=== PATIENT | female | born 1950 | race Caucasian/White ===

== ENCOUNTER 2018-04-01 17:33 | Emergency (ER) | payer OTHER, SELFPAY ==
--- NOTE | 2018-04-01 17:42 | DI.RAD.S_ITS ---
PROCEDURE: XR CHEST 1V INDICATIONS: fever, cancer TECHNIQUE: One view of the chest was acquired. COMPARISON: None. FINDINGS: Surgical changes and devices: Right chest wall Port-A-Cath. Lungs and pleura: No pleural effusions or pneumothorax. Lungs are clear. Mediastinum: Mediastinal contours appear normal. Heart size is normal. Bones and chest wall: No suspicious bony lesions. Overlying soft tissues appear unremarkable. IMPRESSION: No acute cardiopulmonary disease process. Dictated by: Mili Ricci MD, PhD on 04/01/2018 at 19:19 Approved by: Mili Ricci MD, PhD on 04/01/2018 at 19:19
[2018-04-01 17:46] VITALS: BP 125/72; PULSE 123; RESP 20; TEMP 39.4; O2SAT 94
[2018-04-01 18:00] VITALS: BP 131/69
[2018-04-01 18:09] LABS: Add Manual Diff / Slide Review NO; Basophils Absolute Auto 0 /uL (0-100); Basophils Percent Auto 0.2 % (0-2); Eosinophils Absolute Auto 0 /uL (0-450); Eosinophils Percent Auto 0.4 % (2-4); Hematocrit 36.2 % (36-46); Hemoglobin 11.9 g/dL (12.0-16.0); Lymphocytes Absolute Auto 400 /uL (1100-4500); Lymphocytes Percent Auto 4.9 % (25-40); Mean Corpuscular HGB Conc 32.9 % (30-36); Mean Corpuscular Hemoglobin 27.9 PG (26-34); Mean Corpuscular Volume 84.7 fL (80-100); Monocytes Absolute Auto 1100 /uL (0-900); Monocytes Percent Auto 14.8 % (3-14); Neutrophils Absolute Auto 5800 /uL (1500-7000); Neutrophils Percent Auto 79.7 % (50-75); Platelet Count 159 X10^3/uL (150-400); Red Blood Cell Count 4.27 X10^6/uL (4.0-5.2); Red Cell Distribution Width 16.2 % (11.6-14.8); White Blood Cell Count 7.3 X10^3/uL (4.5-11.0)
[2018-04-01 18:18] LABS: Lactate (Lactic Acid) 0.8 mmol/L (0.7-2.1)
[2018-04-01 18:19] LABS: Alanine Aminotransferase 249 IU/L (9-52); Albumin 3.9 g/dL (3.5-5.0); Albumin Globulin Ratio 1.3 (1.0-2.8); Alkaline Phosphatase 852 U/L (38-126); Aspartate Aminotransferase 450 IU/L (14-36); Bilirubin Total 2.2 mg/dL (0.2-1.3); Blood Urea Nitrogen 9 mg/dL (7-17); Calcium 9.1 mg/dL (8.4-10.2); Carbon Dioxide 27 mmol/L (22-32); Chloride 97 mmol/L (98-107); Estimated Glomerular Filt Rate > 60.0 mL/min (>60); Glucose 130 mg/dL (80-110); HEMOLYSIS < 15 (0-50); Sodium 134 mmol/L (137-145); Total Protein 6.9 g/dL (6.3-8.2)
--- NOTE | 2018-04-01 18:38 | ED.FEVER ---
HPI - Fever General Chief Complaint: Fever Stated Complaint: Fever Time Seen by Provider: 04/01/18 17:42 Source: patient, family and EMS Mode of arrival: EMS Limitations: altered mental status History of Present Illness HPI Narrative: 67-year-old female, nonsmoker presents by EMS with her for evaluation of mental status change and supposed sepsis. She carries a diagnosis of pancreatic cancer and completed proton therapy in [place] 8 weeks ago. Her last round of chemotherapy was about 1 week ago. She was in her normal state of health this morning when her left and upon return she was obviously quite ill fever and shaking chills. She has had nausea and 1 episode of vomiting. She took Phenergan suppository prior to her arrival. They had already arranged for direct admission to [facility], but she was too weak to make it to the car. EMS was dispatched and brought her here, the closest facility. She complains of nausea and has little complaint of pain but admittedly feels terrible MD complaint: fever and malaise Onset (ago): hour(s) Maximum Temperature: 103 F Temperature Source: oral Context: on chemotherapy Associated symptoms: chills, rigors, nausea and vomiting Relieving factors: nothing Exacerbating factors: nothing Treatments prior to arrival fever: none Related Data Allergies Allergy/AdvReac Type Severity Reaction Status Date / Time meperidine [From Demerol] Allergy Verified 04/01/18 20:23 Review of Systems Constitutional Denies chills, Denies fever(s), Denies lethargy and Denies weakness Eyes Denies change in vision, Denies eye discharge, Denies irritation and Denies loss of vision ENT Ears, Nose, Mouth, and Throat: Denies change in voice, Denies neck pain and Denies sore throat Cardiovascular Denies chest pain, Denies irregular heart rhythm, Denies lightheadedness, Denies palpitations, Denies dyspnea, Denies dyspnea on exertion and Denies orthopnea Respiratory Denies cough, Denies dyspnea, Denies dyspnea on exertion and Denies wheezing Gastrointestinal Gastrointestinal: Denies abdominal pain, Denies change in bowel habits, Denies diarrhea, Denies nausea and Denies vomiting Genitourinary Denies hematuria, Denies flank pain, Denies urinary incontinence and Denies urinary urgency Musculoskeletal Denies neck pain Integumentary/Breasts Denies pruritus, Denies erythema, Denies rash and Denies wounds Neurologic Denies confusion, Denies loss of vision and Denies weakness Psychiatric Denies anxiety, Denies confusion, Denies depression, Denies homicidal ideation and Denies suicidal ideation Endocrine Denies palpitations Hematologic/Lymphatic Denies easy bruising Allergic/Immunologic Denies wheezing [facility] Social History Smoking Status: Never smoker Exam Narrative Exam Narrative: GENERAL: 67-year-old female, chronically ill obviously in distress and uncomfortable. HEAD: Atraumatic. Normocephalic. No temporal or scalp tenderness. EYES: Pupils equal round and reactive. Extraocular motions intact. No scleral icterus. No injection or drainage. ENT: Nose without bleeding, purulent drainage or septal hematoma. Throat without erythema, tonsillar hypertrophy or exudate. Uvula midline. Airway patent. NECK: Trachea midline. No JVD or lymphadenopathy. Supple, nontender, no meningeal signs. CARDIOVASCULAR: Regular rate and rhythm without murmurs, gallops, or rubs. RESPIRATORY: Clear to auscultation. Breath sounds equal bilaterally. No wheezes, rales, or rhonchi. GASTROINTESTINAL: Abdomen soft, with genearlized tenderness, drain in place in RUQ, no obvious problems with drain. EXTREMITIES: No clubbing, cyanosis, or edema. No joint tenderness, effusion, or edema noted. BACK: Nontender without deformity or crepitance. No flank tenderness. NEURO: AOx3. SKIN: No rash or erythema. Initial Vital Signs Initial Vital Signs: Vital Signs Temperature 103 F H 04/01/18 17:46 Pulse Rate 123 H 04/01/18 17:46 Respiratory Rate 20 04/01/18 17:46 Blood Pressure 125/72 04/01/18 17:46 Pulse Oximetry 94 04/01/18 17:46 Scores GCS [place] coma scale eye opening: To sound [place] coma scale verbal response: Orientated [place] coma scale motor response: Obey commands Pauline coma scale total score: 14 Course Orders Ordered: ED Orders 04/01/18 18:45 Blood Culture Stat Urinalysis and Microscopic Stat Discontinued Medications Acetaminophen (Tylenol) 975 mg PO NOW ONE Stop: 04/01/18 17:45 Last Admin: 04/01/18 18:57 Dose: Not Given Sodium Chloride (Normal Saline 0.9%) 1,000 mls @ 200 mls/hr IV CONT YANIV Last Admin: 04/01/18 18:59 Dose: 200 mls/hr Ketorolac Tromethamine (Toradol) 15 mg IV NOW ONE Stop: 04/01/18 18:31 Last Admin: 04/01/18 18:59 Dose: 15 mg Lorazepam (Ativan) 0.5 mg IV NOW ONE Stop: 04/01/18 19:19 Last Admin: 04/01/18 19:26 Dose: 0.5 mg Morphine Sulfate (Morphine Sulfate) 4 mg IV NOW ONE Stop: 04/01/18 18:31 Last Admin: 04/01/18 19:00 Dose: 4 mg Ondansetron HCl (Zofran) 4 mg IV NOW ONE Stop: 04/01/18 17:46 Last Admin: 04/01/18 18:58 Dose: 4 mg Ondansetron HCl (Zofran) 4 mg IV NOW ONE Stop: 04/01/18 18:31 Last Admin: 04/01/18 18:59 Dose: Not Given Reevaluation(s) Reevaluation #1: patient shows tremendous improvement after above stated therapies and is now much more awake and interactive Consultations Consultation #1: call to Dr. Villanueva (hospitalist at [facility]) whom is happy to accept in transfer. No ABX now, as there is no obvious source. Vital Signs - 8 hr 04/01/18 20:40 Temperature 97.9 F Pulse Rate 102 H Blood Pressure [Right Arm] 110/53 L MDM - Fever Medical Records Attestation: I reviewed the patient's medical records. Lab Data Attestation: I reviewed the patient's lab results. Result diagrams: 04/01/18 17:55 04/01/18 17:55 Lab Results 04/01/18 04/01/18 04/01/18 Range/Units 17:55 17:55 17:55 WBC 7.3 (4.5-11.0) X10^3/uL RBC 4.27 (4.0-5.2) X10^6/uL Hgb 11.9 L (12.0-16.0) g/dL Hct 36.2 (36-46) % MCV 84.7 (80-100) fL MCH 27.9 (26-34) PG MCHC 32.9 (30-36) % RDW 16.2 H (11.6-14.8) % Plt Count 159 (150-400) X10^3/uL Neut % (Auto) 79.7 H (50-75) % Lymph % (Auto) 4.9 L (25-40) % [place] % (Auto) 14.8 H (3-14) % Eos % (Auto) 0.4 L (2-4) % Baso % (Auto) 0.2 (0-2) % Neut # (Auto) 5800 (8757-0513) /uL Lymph # (Auto) 400 L (1724-1461) /uL [place] # (Auto) 1100 H (0-900) /uL Eos # (Auto) 0 (0-450) /uL Baso # (Auto) 0 (0-100) /uL Sodium 134 L (137-145) mmol/L Potassium 4.0 (3.4-5.1) mmol/L Chloride 97 L (98-107) mmol/L Carbon Dioxide 27 (22-32) mmol/L BUN 9 (7-17) mg/dL Creatinine 0.50 L (0.52-1.04) mg/dL Estimated GFR > 60.0 (>60) mL/min BUN/Creatinine Ratio 18.0 (6-22) Glucose 130 H (80-110) mg/dL Lactate (0.7-2.1) mmol/L Calcium 9.1 (8.4-10.2) mg/dL Total Bilirubin 2.2 H (0.2-1.3) mg/dL AST 450 H (14-36) IU/L ALT 249 H (9-52) IU/L Alkaline Phosphatase 852 H (38-126) U/L Total Protein 6.9 (6.3-8.2) g/dL Albumin 3.9 (3.5-5.0) g/dL Globulin 3.0 (1.7-4.1) g/dL Albumin/Globulin Ratio 1.3 (1.0-2.8) Procalcitonin 0.32 (<0.5) ng/mL Urine Color Urine Appearance Urine pH (4.5-8.0) Ur Specific [place] (1.000-1.035) Urine Protein (Negative) Urine Glucose (UA) (Negative) g/dL Urine Ketones (NEGATIVE) Urine Occult Blood (Negative) Urine Nitrate (Negative) Urine Bilirubin (NEGATIVE) Urine Urobilinogen (0.2) E.U./dL Ur Leukocyte Esterase (NEGATIVE) Urine RBC (0-5/HPF) Urine WBC (0-5/HPF) Ur Squamous Epith Cells Amorphous Sediment Urine Bacteria (None) Ur Culture Indicated? 04/01/18 04/01/18 Range/Units 17:55 18:45 WBC (4.5-11.0) X10^3/uL RBC (4.0-5.2) X10^6/uL Hgb (12.0-16.0) g/dL Hct (36-46) % MCV (80-100) fL MCH (26-34) PG MCHC (30-36) % RDW (11.6-14.8) % Plt Count (150-400) X10^3/uL Neut % (Auto) (50-75) % Lymph % (Auto) (25-40) % [place] % (Auto) (3-14) % Eos % (Auto) (2-4) % Baso % (Auto) (0-2) % Neut # (Auto) (4871-2909) /uL Lymph # (Auto) (7224-8301) /uL [place] # (Auto) (0-900) /uL Eos # (Auto) (0-450) /uL Baso # (Auto) (0-100) /uL Sodium (137-145) mmol/L Potassium (3.4-5.1) mmol/L Chloride (98-107) mmol/L Carbon Dioxide (22-32) mmol/L BUN (7-17) mg/dL Creatinine (0.52-1.04) mg/dL Estimated GFR (>60) mL/min BUN/Creatinine Ratio (6-22) Glucose (80-110) mg/dL Lactate 0.8 (0.7-2.1) mmol/L Calcium (8.4-10.2) mg/dL Total Bilirubin (0.2-1.3) mg/dL AST (14-36) IU/L ALT (9-52) IU/L Alkaline Phosphatase (38-126) U/L Total Protein (6.3-8.2) g/dL Albumin (3.5-5.0) g/dL Globulin (1.7-4.1) g/dL Albumin/Globulin Ratio (1.0-2.8) Procalcitonin (<0.5) ng/mL Urine Color Yellow Urine Appearance Clear Urine pH 7.5 (4.5-8.0) Ur Specific [place] 1.015 (1.000-1.035) Urine Protein Negative (Negative) Urine Glucose (UA) Negative (Negative) g/dL Urine Ketones Negative (NEGATIVE) Urine Occult Blood Negative (Negative) Urine Nitrate Negative (Negative) Urine Bilirubin Negative (NEGATIVE) Urine Urobilinogen 2.0 H (0.2) E.U./dL Ur Leukocyte Esterase Negative (NEGATIVE) Urine RBC None seen (0-5/HPF) Urine WBC 1-5/hpf (0-5/HPF) Ur Squamous Epith Cells 5-10 /hpf H Amorphous Sediment 2+ Urine Bacteria None seen (None) Ur Culture Indicated? Cult not indicated Discharge Plan Departure Patient Disposition: [facility] Clinical Impression: Sepsis, Immunocompromised Discharge Date/Time: 04/01/18 21:06 Interventions: ED Discharge Assessment Last Done: 04/01/18 20:42
[2018-04-01 18:40] LABS: Procalcitonin 0.32 ng/mL (<0.5)
--- NOTE | 2018-04-01 18:43 | ED_ITS ---
HPI - Fever General Chief Complaint: Fever Stated Complaint: Fever Time Seen by Provider: 04/01/18 17:42 Source: patient, family and EMS Mode of arrival: EMS Limitations: altered mental status History of Present Illness HPI Narrative: 67-year-old female, nonsmoker presents by EMS with her for evaluation of mental status change and supposed sepsis. She carries a diagnosis of pancreatic cancer and completed proton therapy in [place] 8 weeks ago. Her last round of chemotherapy was about 1 week ago. She was in her normal state of health this morning when her left and upon return she was obviously quite ill fever and shaking chills. She has had nausea and 1 episode of vomiting. She took Phenergan suppository prior to her arrival. They had already arranged for direct admission to [facility], but she was too weak to make it to the car. EMS was dispatched and brought her here, the closest facility. She complains of nausea and has little complaint of pain but admittedly feels terrible MD complaint: fever and malaise Onset (ago): hour(s) Maximum Temperature: 103 F Temperature Source: oral Context: on chemotherapy Associated symptoms: chills, rigors, nausea and vomiting Relieving factors: nothing Exacerbating factors: nothing Treatments prior to arrival fever: none Related Data Allergies Allergy/AdvReac Type Severity Reaction Status Date / Time meperidine [From Demerol] Allergy Verified 04/01/18 20:23 Review of Systems Constitutional Denies chills, Denies fever(s), Denies lethargy and Denies weakness Eyes Denies change in vision, Denies eye discharge, Denies irritation and Denies loss of vision ENT Ears, Nose, Mouth, and Throat: Denies change in voice, Denies neck pain and Denies sore throat Cardiovascular Denies chest pain, Denies irregular heart rhythm, Denies lightheadedness, Denies palpitations, Denies dyspnea, Denies dyspnea on exertion and Denies orthopnea Respiratory Denies cough, Denies dyspnea, Denies dyspnea on exertion and Denies wheezing Gastrointestinal Gastrointestinal: Denies abdominal pain, Denies change in bowel habits, Denies diarrhea, Denies nausea and Denies vomiting Genitourinary Denies hematuria, Denies flank pain, Denies urinary incontinence and Denies urinary urgency Musculoskeletal Denies neck pain Integumentary/Breasts Denies pruritus, Denies erythema, Denies rash and Denies wounds Neurologic Denies confusion, Denies loss of vision and Denies weakness Psychiatric Denies anxiety, Denies confusion, Denies depression, Denies homicidal ideation and Denies suicidal ideation Endocrine Denies palpitations Hematologic/Lymphatic Denies easy bruising Allergic/Immunologic Denies wheezing [facility] Social History Smoking Status: Never smoker Exam Narrative Exam Narrative: GENERAL: 67-year-old female, chronically ill obviously in distress and uncomfortable. HEAD: Atraumatic. Normocephalic. No temporal or scalp tenderness. EYES: Pupils equal round and reactive. Extraocular motions intact. No scleral icterus. No injection or drainage. ENT: Nose without bleeding, purulent drainage or septal hematoma. Throat without erythema, tonsillar hypertrophy or exudate. Uvula midline. Airway patent. NECK: Trachea midline. No JVD or lymphadenopathy. Supple, nontender, no meningeal signs. CARDIOVASCULAR: Regular rate and rhythm without murmurs, gallops, or rubs. RESPIRATORY: Clear to auscultation. Breath sounds equal bilaterally. No wheezes , rales, or rhonchi. GASTROINTESTINAL: Abdomen soft, with genearlized tenderness, drain in place in RUQ, no obvious problems with drain. EXTREMITIES: No clubbing, cyanosis, or edema. No joint tenderness, effusion, or edema noted. BACK: Nontender without deformity or crepitance. No flank tenderness. NEURO: AOx3. SKIN: No rash or erythema. Initial Vital Signs Initial Vital Signs: Vital Signs Temperature 103 F H 04/01/18 17:46 Pulse Rate 123 H 04/01/18 17:46 Respiratory Rate 20 04/01/18 17:46 Blood Pressure 125/72 04/01/18 17:46 Pulse Oximetry 94 04/01/18 17:46 Scores GCS [place] coma scale eye opening: To sound Pauline coma scale verbal response: Orientated Pauline coma scale motor response: Obey commands Pauline coma scale total score: 14 Course Orders Ordered: ED Orders 04/01/18 18:45 Blood Culture Stat Urinalysis and Microscopic Stat Discontinued Medications Acetaminophen (Tylenol) 975 mg PO NOW ONE Stop: 04/01/18 17:45 Last Admin: 04/01/18 18:57 Dose: Not Given Sodium Chloride (Normal Saline 0.9%) 1,000 mls @ 200 mls/hr IV CONT YANIV Last Admin: 04/01/18 18:59 Dose: 200 mls/hr Ketorolac Tromethamine (Toradol) 15 mg IV NOW ONE Stop: 04/01/18 18:31 Last Admin: 04/01/18 18:59 Dose: 15 mg Lorazepam (Ativan) 0.5 mg IV NOW ONE Stop: 04/01/18 19:19 Last Admin: 04/01/18 19:26 Dose: 0.5 mg Morphine Sulfate (Morphine Sulfate) 4 mg IV NOW ONE Stop: 04/01/18 18:31 Last Admin: 04/01/18 19:00 Dose: 4 mg Ondansetron HCl (Zofran) 4 mg IV NOW ONE Stop: 04/01/18 17:46 Last Admin: 04/01/18 18:58 Dose: 4 mg Ondansetron HCl (Zofran) 4 mg IV NOW ONE Stop: 04/01/18 18:31 Last Admin: 04/01/18 18:59 Dose: Not Given Reevaluation(s) Reevaluation #1: patient shows tremendous improvement after above stated therapies and is now much more awake and interactive Consultations Consultation #1: call to Dr. Villanueva (hospitalist at [facility]) whom is happy to accept in transfer. No ABX now, as there is no obvious source. Vital Signs - 8 hr 04/01/18 20:40 Temperature 97.9 F Pulse Rate 102 H Blood Pressure [Right Arm] 110/53 L MDM - Fever Medical Records Attestation: I reviewed the patient's medical records. Lab Data Attestation: I reviewed the patient's lab results. Result diagrams: 04/01/18 17:55 04/01/18 17:55 Lab Results 04/01/18 04/01/18 04/01/18 Range/Units 17:55 17:55 17:55 WBC 7.3 (4.5-11.0) X10^3/uL RBC 4.27 (4.0-5.2) X10^6/uL Hgb 11.9 L (12.0-16.0) g/dL Hct 36.2 (36-46) % MCV 84.7 (80-100) fL MCH 27.9 (26-34) PG MCHC 32.9 (30-36) % RDW 16.2 H (11.6-14.8) % Plt Count 159 (150-400) X10^3/uL Neut % (Auto) 79.7 H (50-75) % Lymph % (Auto) 4.9 L (25-40) % [place] % (Auto) 14.8 H (3-14) % Eos % (Auto) 0.4 L (2-4) % Baso % (Auto) 0.2 (0-2) % Neut # (Auto) 5800 (1683-6862) /uL Lymph # (Auto) 400 L (6963-2044) /uL [place] # (Auto) 1100 H (0-900) /uL Eos # (Auto) 0 (0-450) /uL Baso # (Auto) 0 (0-100) /uL Sodium 134 L (137-145) mmol/L Potassium 4.0 (3.4-5.1) mmol/L Chloride 97 L (98-107) mmol/L Carbon Dioxide 27 (22-32) mmol/L BUN 9 (7-17) mg/dL Creatinine 0.50 L (0.52-1.04) mg/dL Estimated GFR > 60.0 (>60) mL/min BUN/Creatinine Ratio 18.0 (6-22) Glucose 130 H (80-110) mg/dL Lactate (0.7-2.1) mmol/L Calcium 9.1 (8.4-10.2) mg/dL Total Bilirubin 2.2 H (0.2-1.3) mg/dL AST 450 H (14-36) IU/L ALT 249 H (9-52) IU/L Alkaline Phosphatase 852 H (38-126) U/L Total Protein 6.9 (6.3-8.2) g/dL Albumin 3.9 (3.5-5.0) g/dL Globulin 3.0 (1.7-4.1) g/dL Albumin/Globulin Ratio 1.3 (1.0-2.8) Procalcitonin 0.32 (<0.5) ng/mL Urine Color Urine Appearance Urine pH (4.5-8.0) Ur Specific [place] (1.000-1.035) Urine Protein (Negative) Urine Glucose (UA) (Negative) g/dL Urine Ketones (NEGATIVE) Urine Occult Blood (Negative) Urine Nitrate (Negative) Urine Bilirubin (NEGATIVE) Urine Urobilinogen (0.2) E.U./dL Ur Leukocyte Esterase (NEGATIVE) Urine RBC (0-5/HPF) Urine WBC (0-5/HPF) Ur Squamous Epith Cells Amorphous Sediment Urine Bacteria (None) Ur Culture Indicated? 04/01/18 04/01/18 Range/Units 17:55 18:45 WBC (4.5-11.0) X10^3/uL RBC (4.0-5.2) X10^6/uL Hgb (12.0-16.0) g/dL Hct (36-46) % MCV (80-100) fL MCH (26-34) PG MCHC (30-36) % RDW (11.6-14.8) % Plt Count (150-400) X10^3/uL Neut % (Auto) (50-75) % Lymph % (Auto) (25-40) % [place] % (Auto) (3-14) % Eos % (Auto) (2-4) % Baso % (Auto) (0-2) % Neut # (Auto) (6152-5181) /uL Lymph # (Auto) (6020-1061) /uL [place] # (Auto) (0-900) /uL Eos # (Auto) (0-450) /uL Baso # (Auto) (0-100) /uL Sodium (137-145) mmol/L Potassium (3.4-5.1) mmol/L Chloride (98-107) mmol/L Carbon Dioxide (22-32) mmol/L BUN (7-17) mg/dL Creatinine (0.52-1.04) mg/dL Estimated GFR (>60) mL/min BUN/Creatinine Ratio (6-22) Glucose (80-110) mg/dL Lactate 0.8 (0.7-2.1) mmol/L Calcium (8.4-10.2) mg/dL Total Bilirubin (0.2-1.3) mg/dL AST (14-36) IU/L ALT (9-52) IU/L Alkaline Phosphatase (38-126) U/L Total Protein (6.3-8.2) g/dL Albumin (3.5-5.0) g/dL Globulin (1.7-4.1) g/dL Albumin/Globulin Ratio (1.0-2.8) Procalcitonin (<0.5) ng/mL Urine Color Yellow Urine Appearance Clear Urine pH 7.5 (4.5-8.0) Ur Specific [place] 1.015 (1.000-1.035) Urine Protein Negative (Negative) Urine Glucose (UA) Negative (Negative) g/dL Urine Ketones Negative (NEGATIVE) Urine Occult Blood Negative (Negative) Urine Nitrate Negative (Negative) Urine Bilirubin Negative (NEGATIVE) Urine Urobilinogen 2.0 H (0.2) E.U./dL Ur Leukocyte Esterase Negative (NEGATIVE) Urine RBC None seen (0-5/HPF) Urine WBC 1-5/hpf (0-5/HPF) Ur Squamous Epith Cells 5-10 /hpf H Amorphous Sediment 2+ Urine Bacteria None seen (None) Ur Culture Indicated? Cult not indicated Discharge Plan Departure [facility] Disposition: [facility] Clinical Impression: Sepsis, Immunocompromised Discharge Date/Time: 04/01/18 21:06 Interventions: ED Discharge Assessment Last Done: 04/01/18 20:42
[2018-04-01 18:49] LABS: Bacteria Urine None Seen; RBC Urine None Seen (0-5/HPF)
--- NOTE | 2018-04-01 18:49 | PC.NURSE ---
mean time, came into room, upset we are accessing port/ labs/ cath, app[facility]ly [facility]/ caring for her. no hospice. dr. escoto in to see
[2018-04-01 18:51] LABS: Appearance Urine UA CLEAR; Bilirubin Urine UA NEGATIVE (NEGATIVE); Color Urine UA YELLOW; Glucose Urine UA NEGATIVE (Negative); Ketones Urine UA NEGATIVE (NEGATIVE); Leukocyte Esterase Urine UA NEGATIVE (NEGATIVE); Nitrite Urine UA NEGATIVE (Negative); Occult Blood Urine UA NEGATIVE (Negative); Protein Urine UA NEGATIVE (Negative); Specific Gravity Urine UA 1.015 (1.000-1.035); pH Urine UA 7.5 (4.5-8.0)
[2018-04-01 18:58] LABS: Amorphous Sediment Urine 2+; Culture Indicated Urine Cult Not Indicated; Squamous Epithelial Cell Urine 5-10 /HPF; WBC Urine 1-5/HPF (0-5/HPF)
[2018-04-01] MEDS: ONDANSETRON 4 MG/2 ML INJ IV (18:58)
[2018-04-01] MEDS: KETOROLAC 60 MG/2 ML VIAL 15 MG IV (18:59)
[2018-04-01] MEDS: SODIUM CHLORIDE 0.9% 1,000 ML 200 ML IV (18:59)
[2018-04-01] MEDS: MORPHINE 5 MG/ML INJ 4 MG IV (19:00)
[2018-04-01] MEDS: LORazepam 2 MG/ML SYRINGE 0.5 MG IV (19:26)
[2018-04-01 20:40] VITALS: BP 110/53; PULSE 102; TEMP 36.6
== END 2018-04-01 21:06 | disposition short-term general hospital (02) ==
PROVIDERS: Emergency Medicine; Emergency Provider Emergency Medicine; PCP Student in an Organized Health Care Education/Training Program
DX: A41.9 Sepsis, unspecified organism (principal); D84.9 Immunodeficiency, unspecified
CPT/HCPCS: 36415; 36591; 71045; 80053; 81001; 83605; 84145; 85025; 87040; 96361; 96374; 96375; 99283; 99284; J1885; J2060; J2270; J2405